=== PATIENT | female | born 1955 | race Caucasian/White ===

== ENCOUNTER 2018-07-18 11:41 | Emergency (ER) | payer BC ==
[~2018-07-18] VITALS: Ht 165.1 cm; Wt 56.7 kg
[2018-07-18 11:41] VITALS: BP 128/75
[2018-07-18] MEDS ORDERED: [UNRECOGNIZED DRUG - OTHER] PO (12:28)
[2018-07-18] MEDS ORDERED: ASPI-1169 PO (12:28)
[2018-07-18] MEDS ORDERED: ATOR10TA PO (12:28)
[2018-07-18] MEDS ORDERED: SITA1TAB2 PO (12:28)
[2018-07-18] MEDS ORDERED: IBUPROFEN 400 MG TABLET PO STA (13:20)
[2018-07-18] MEDS ORDERED: IBUPROFEN 400 MG TABLET ONE (13:27)
== END 2018-07-18 14:24 | disposition home or self-care (01) ==
LOC: ER 11:43
DX: N64.4 Mastodynia (principal); Z79.82 Long term (current) use of aspirin
CPT/HCPCS: 76642-TC

== ENCOUNTER 2020-12-15 12:02 | Emergency (ER) | payer BC ==
[~2020-12-15] VITALS: Ht 167.6 cm; Wt 54.4 kg
[~2020-12-15 12:02] MED LIST: ASPI-1169 PO; ATOR10TA PO; SITA1TAB2 PO; [UNRECOGNIZED DRUG - OTHER] PO
--- NOTE | 2020-12-15 12:33 | NUR ---
URINE SENT TO LAB.
[2020-12-15] MEDS ORDERED: LIDOCAINE HCL/MPF 1% 30 ML VIAL IJ ONE (12:34)
--- NOTE | 2020-12-15 12:36 | NUR ---
PATIENT PREP FOR I&D.
--- NOTE | 2020-12-15 13:07 | NUR ---
I&D NOT PERFORMED, DR. MERCEDES ADMINISTERED A DIGITAL BLOCK W/ LIDOCAINE. PATIENT TOLERATED PROCEDURE WELL, PAIN IMPROVED.
[2020-12-15 13:14] LABS: BILIRUBIN,URINE Negative (NEGATIVE); COLOR,URINE YELLOW (YELLOW); LEUKOCYTE ESTERASE ,URINE Small (NEGATIVE); NITRITE, URINE Negative (NEGATIVE); PROTEIN,URINE Negative (NEGATIVE); UGLUCOSE >=1000 mg/dL (NEGATIVE); UROBILINOGEN,URINE 0.2 EU/dL (0.2)
[2020-12-15 13:15] LABS: BACTERIA,URINE 1+ /HPF (None Seen)
[2020-12-15] MEDS ORDERED: SULF1TAB48 PO (13:39)
[2020-12-15] MEDS ORDERED: CEPH500T PO (13:39)
[2020-12-15 13:48] VITALS: BP 119/69
--- NOTE | 2020-12-15 13:48 | NUR ---
Patient discharged to home in stable condition. Written and verbal after care instructions given. Patient verbalizes understanding of instruction.
[2020-12-16] MEDS ORDERED: DOXY100T2 PO (22:24)
== END 2020-12-15 13:49 | disposition home or self-care (01) ==
LOC: ER 12:04
DX: N39.0 Urinary tract infection, site not specified (principal); L08.9 Local infection of the skin and subcutaneous tissue, unspecified; E11.9 Type 2 diabetes mellitus without complications; Z79.82 Long term (current) use of aspirin; Z79.899 Other long term (current) drug therapy
CPT/HCPCS: 64450; 73140; 76882; 81001; 87086; 99285; A6403; J3490

== ENCOUNTER 2020-12-16 19:09 | Emergency (ER) | payer BC ==
[~2020-12-16] VITALS: Ht 167.6 cm; Wt 54.4 kg
[~2020-12-16 19:09] MED LIST changes: +CEPH500T PO; +SULF1TAB48 PO
--- NOTE | 2020-12-16 19:15 | NUR ---
PT BIBSELF C/O PAIN AND SWELLING IN LEFT HAND MIDDLE FINGER. PT AAOX4 BREATHING EVENLY AND UNLABORED. PT STATES THAT "SHE USED A DIRTY NEEDLE TO CHECK HER BLOOD SUGAR." PT ATTACHED TO MONITOR AND POX. UPON ASSESSMENT, MIDDLE FINGER IS RED AND SWOLLEN WITH A DARK BRUSING ON THE SIDE OF HER FINGERTIP. PA BEDSIDE
[2020-12-16] MEDS ORDERED: VANCOMYCIN 1 GM in IV D5W 250 ML IV ONE (20:00)
[2020-12-16] MEDS ORDERED: CEFTRIAXONE 1GM BAG (ER ONLY) 1 GM/50 ML PIGGYBACK IV ONE (20:00)
[2020-12-16] MEDS ORDERED: CEFTRIAXONE 1GM BAG (ER ONLY) 50 ML IV ONE (20:03)
[2020-12-16] MEDS ORDERED: VANCOMYCIN 1 GM VIAL ONE (20:03)
--- NOTE | 2020-12-16 20:06 | NUR ---
SPOKE TO [facility] PHOEBE DOOLEY REGARDING PT
--- NOTE | 2020-12-16 20:08 | NUR ---
NARENID SWABBED, SENT TO LAB.
--- NOTE | 2020-12-16 20:10 | NUR ---
RT HAND 20G INITIATED
--- NOTE | 2020-12-16 20:10 | NUR ---
LAB AT BEDSIDE, BLOOD OBTAINED AND COLLECTED
[2020-12-16 20:22] LABS: BASOPHILS % (AUTO) 0.4 % (0.0-2.0); EOSINOPHILS % (AUTO) 1.2 % (0.0-6.0); HEMATOCRIT 38 % (33-45); HEMOGLOBIN 12.2 g/dL (11.5-14.8); LYMPHOCYTES # (AUTO) 1.2 /CMM (0.8-4.8); LYMPHOCYTES % (AUTO) 12.6 % (20.0-44.0); MEAN CORPUSCULAR HGB CONC 33 g/dl (31.0-36.0); MEAN CORPUSCULAR VOLUME 81 fL (82-100); MONOCYTES # (AUTO) 0.3 /CMM (0.1-1.30); MONOCYTES % (AUTO) 3.3 % (2.0-12.0); NEUTROPHILS # (AUTO) 7.6 /CMM (1.8-8.9); NEUTROPHILS % (AUTO) 82.5 % (43.0-81.0); PLATELET COUNT (AUTO) 209 /CMM (150-450); RED BLOOD CELL COUNT(AUTO) 4.63 MIL/uL (4.0-5.2); WHITE BLOOD COUNT (AUTO) 9.2 K/uL (4.3-11.0)
[2020-12-16 20:30] LABS: CALCIUM, SERUM 9.4 mg/dL (8.5-10.1); CREATININE 0.8 mg/dL (0.6-1.3); POTASSIUM 3.7 mmol/L (3.5-5.1)
--- NOTE | 2020-12-16 21:08 | NUR ---
BRENDA ROCHA TALKING TO DR. GALLAGHER FOR PEER TO PEER.
[2020-12-16] MEDS ORDERED: ONDANSETRON HCL/PF 4 MG/2 ML VIAL ONE (21:22)
[2020-12-16] MEDS ORDERED: MORPHINE SULFATE INJ 4 MG/ML DISP.SYRIN ONE (21:22)
[2020-12-16] MEDS ORDERED: MORPHINE SULFATE INJ 2 MG/ML DISP.SYRIN IV ONE (21:30)
[2020-12-16] MEDS ORDERED: ONDANSETRON HCL/PF 4 MG/2 ML VIAL IV ONE (21:30)
[2020-12-16] MEDS ORDERED: DOXY100T2 PO (22:24)
--- NOTE | 2020-12-16 22:34 | NUR ---
Patient does not wish to proceed with medical care recommended by LAURITA ELIAS. Patient given information related to possible complications, up to and including , which could occur as a result of leaving the hospital at this time. Patient verbalizes understanding of risks involved due to leaving against medical advice. Patient has signed AMA form. IV removed. Catheter intact and site benign. Pressure and 4x4 applied to site. No bleeding noted.Pt ambulatory with a steady gait
[2020-12-16 22:43] VITALS: BP 110/70
== END 2020-12-16 22:34 | disposition left against medical advice (07) ==
LOC: ER 19:14
DX: M65.842 Other synovitis and tenosynovitis, left hand (principal); E11.65 Type 2 diabetes mellitus with hyperglycemia; Z79.84 Long term (current) use of oral hypoglycemic drugs; Z20.822 Contact with and (suspected) exposure to COVID-19
CPT/HCPCS: 36415; 73140; 80048; 85025; 85652; 85730; 86140; 87040 ×2; 87426; 96365; 96367; 96375; 99285; C9803; J0696; J2270; J2405; J3370

== ENCOUNTER 2020-12-18 14:50 | Emergency (ER) | payer BC ==
[~2020-12-18] VITALS: Ht 162.6 cm; Wt 54.4 kg
[~2020-12-18 14:50] MED LIST changes: +DOXY100T2 PO
--- NOTE | 2020-12-18 15:00 | NUR ---
The patient bib her for c/o left middle finger abscess x 4 days, on oral antibiotic. Left middle finger swollen, red and warm to touch with pus like discharge and small cut which according to the patient was done at [facility]. Patient c/o left middle finger pain 2/10. Denies chills or fever. Will continue to monitor the patient.
[2020-12-18] MEDS ORDERED: PIPERACILLIN /TAZOBACTAM 3.375 G in IV D5W 50 ML IV ONE ×2 (15:30→22:30)
[2020-12-18] MEDS: VANCOMYCIN 1 GM in IV D5W 250 ML IV ONE ×2 (15:30→16:55)
[2020-12-18] MEDS ORDERED: IV NS 0.9% 1,000 ML BAG IV ONE (15:30)
[2020-12-18] MEDS ORDERED: DAPA10TA PO (15:51)
[2020-12-18] MEDS ORDERED: [UNRECOGNIZED DRUG - OTHER] PO (15:51)
[2020-12-18] MEDS ORDERED: AMOX-430 PO (15:51)
[2020-12-18] MEDS ORDERED: [UNRECOGNIZED DRUG - OTHER] PO (15:51)
--- NOTE | 2020-12-18 15:56 | NUR ---
covid swab done and sent to the lab
[2020-12-18] MEDS ORDERED: FORXIGA PO (15:57)
[2020-12-18] MEDS ORDERED: [UNRECOGNIZED DRUG - OTHER] PO (16:03)
[2020-12-18] MEDS ORDERED: METFORMIN PO (16:03)
[2020-12-18 16:04] LABS: BASOPHILS % (AUTO) 0.3 % (0.0-2.0); EOSINOPHILS % (AUTO) 1.2 % (0.0-6.0); HEMATOCRIT 35 % (33-45); HEMOGLOBIN 11.3 g/dL (11.5-14.8); LYMPHOCYTES # (AUTO) 1.6 /CMM (0.8-4.8); LYMPHOCYTES % (AUTO) 24.2 % (20.0-44.0); MEAN CORPUSCULAR HGB CONC 32 g/dl (31.0-36.0); MEAN CORPUSCULAR VOLUME 81 fL (82-100); MONOCYTES # (AUTO) 0.4 /CMM (0.1-1.30); MONOCYTES % (AUTO) 6.1 % (2.0-12.0); NEUTROPHILS # (AUTO) 4.4 /CMM (1.8-8.9); NEUTROPHILS % (AUTO) 68.2 % (43.0-81.0); PLATELET COUNT (AUTO) 231 /CMM (150-450); RED BLOOD CELL COUNT(AUTO) 4.31 MIL/uL (4.0-5.2); WHITE BLOOD COUNT (AUTO) 6.5 K/uL (4.3-11.0)
[2020-12-18 16:13] LABS: CALCIUM, SERUM 8.9 mg/dL (8.5-10.1); CREATININE 0.7 mg/dL (0.6-1.3); POTASSIUM 4.1 mmol/L (3.5-5.1)
--- NOTE | 2020-12-18 16:17 | NUR ---
MOVE SHEET SUBMITTED
--- NOTE | 2020-12-18 19:05 | NUR ---
Rec'd report from TIMMY Sorto for hernesto
--- NOTE | 2020-12-18 20:54 | NUR ---
DR. BALDWIN SPEAKING WITH DR. GALLAGHER FROM [facility]
[2020-12-18] MEDS ORDERED: HYDROCODONE/APAP 5/325MG TABLET ONE (21:49)
[2020-12-18] MEDS ORDERED: IBUPROFEN 600 MG TABLET ONE (21:54)
[2020-12-18] MEDS ORDERED: HYDROCODONE/APAP 5/325MG TABLET PO ONE (22:00)
[2020-12-18] MEDS ORDERED: IBUPROFEN 600 MG TABLET PO ONE ×2 (22:00)
[2020-12-18] MEDS ORDERED: PIPERACILLIN /TAZOBACTAM 3.375 G VIAL IV ONE (22:33)
--- NOTE | 2020-12-18 22:35 | NUR ---
SPOKE WITH [employer] [employer] [facility] ([phone]) REQUESTING TRANSFER INFORMATION. PER ANTWON, STILL NO BED AVAILABLE AT [facility] AT THIS TIME. WILL CALL BACK WITH MORE INFORMATION
--- NOTE | 2020-12-18 23:05 | NUR ---
CLINICAL INFORMATIONED REFAXED TO [facility] PER REQUEST. WILL CALL BACK WITH TRANSFER INFORMATION
--- NOTE | 2020-12-18 23:45 | NUR ---
TRANSFER INFORMATION: PT WILL BE TRANSFERRED TO [facility] PER INSURANCE REQUEST ACCEPTING MD: DR. GALLAGHER NUMBER FOR REPORT: [phone] BED ASSIGNMENT: [id number]
--- NOTE | 2020-12-18 23:49 | NUR ---
[facility] ETA 45 MINUTES. AUTH #[id number]
--- NOTE | 2020-12-18 23:57 | NUR ---
gave report to TIMMY Tierney for hernesto at [facility]
[2020-12-19 00:30] VITALS: BP 122/75
--- NOTE | 2020-12-19 00:39 | NUR ---
[facility] AT BED ISDE TO FLUXER THE PT. REPORT GIVEN
== END 2020-12-19 00:38 | disposition short-term general hospital (02) ==
LOC: ER 14:55
DX: L08.9 Local infection of the skin and subcutaneous tissue, unspecified (principal); E11.9 Type 2 diabetes mellitus without complications; Z20.822 Contact with and (suspected) exposure to COVID-19
CPT/HCPCS: 36415; 80048; 85025; 85652; 85730; 86140; 87040 ×2; 87426; 96365; 96366; 96368; 99285; C9803; J2543 ×2; J3370; J7030; J7060